=== PATIENT | male | born 1955 | race Caucasian/White ===

== ENCOUNTER → 2022-04-03 | Outpatient (CLI) | payer MEDICARE, BC ==
--- NOTE | 2022-04-03 09:58 | XR ---
EXAMINATION TYPE: XR chest 2V DATE OF EXAM: 04/03/2022 8:19 AM COMPARISON: none TECHNIQUE: XR chest 2V Frontal and lateral views of the chest. CLINICAL INDICATION:Male, 66 years old with history of [id number]; FINDINGS: Lungs/Pleura: There is no evidence of pleural effusion, focal consolidation, or pneumothorax. Pulmonary vascularity: Unremarkable. Heart/mediastinum: Cardiomediastinal silhouette is unremarkable. Musculoskeletal: No acute osseous pathology. IMPRESSION: No acute cardiopulmonary disease/process.
== END | disposition home or self-care (01) ==
LOC: RADXRMAIN 08:07
PROVIDERS: ATTEND Internal Medicine
DX: R07.89 Other chest pain (principal)
CPT/HCPCS: 71046

== ENCOUNTER → 2022-05-01 | Outpatient (CLI) | payer MEDICARE, BC ==
[~2022-05-01] MED LIST: REGADENOSON 0.4 MG/5 ML SYRINGE IV PRN
--- NOTE | 2022-05-01 12:25 | NM ---
EXAMINATION TYPE: NM stress lexiscan cardiolite DATE OF EXAM: 05/01/2022 COMPARISON: NONE HISTORY: Chest pain TECHNIQUE: After the intravenous administration of 10.2 mCi Tc 99m Sestamibi - Cardiolite resting SP ECT images acquired 45 minutes post injection. The patient received 0.4mg Lexiscan, 25.2 mCi Tc 99m Sestamibi - Stress images obtained [address] injection FINDINGS: Review of stress and rest SPECT images demonstrates sizable area of stress-induced reversible ischemi a involving the apex myocardium. There is a fixed defect involving the inferior wall suggestive of pr evious infarction. Corresponding wall motion abnormalities are noted.. Gated analysis shows normal w all motion with an estimated left ventricular ejection fraction of 41 %. Ventricular chamber is dilat ed. IMPRESSION: 1. Sizable area of stress-induced reversible ischemia involving the apex of the myocardium. Report ca lled to referring clinician 12:22 PM 05/01/2022. 2. Ejection fraction of 41%.
--- NOTE | 2022-05-01 17:09 | CA ---
Lexiscan Nuclear Stress Test Report Name: See Patel Exam Date: 05/01/2022 10:17 Exam Location: [facility] Ht (in): 70 Wt (lb): 195 BSA: 2.06 Ordering Phys: Isreal Sanchez MD Referring Phys: Daniel, Technologist: Chidi Galdamez Age: 66 Gender: M : 1955 Procedure CPT: Indications: R94 ABNORMAL EKG ICD-10 Codes: Patient History: Abnormal EKG Medications: Meds past 24 hrs: Pretest Chest Pain: STRESS TEST Lexiscan Protocol Exercise Duration (min:sec): 02:[address] Depressions (mm): Angina Score: Cedillo Score: Resting HR (bpm): 53 Peak HR (bpm): 108 Resting BP (mmHg): 158 / 92 Peak BP (mmHg): 176 / 109 MPHR: 153 Target HR: 130 % MPHR: 71 METS: 1.0 Total Dose: Peak Dose: Atropine: Double Product: 67226 BP Response: Stress Termination: Infusion Complete Stress Symptoms: Lt shoulder and upper back pain Stress Summary: ECG ANALYSIS Resting ECG: Stress ECG: CONCLUSIONS At baseline EKG showed normal sinus rhythm, normal axis, Q waves V1 and V2, nonspecific T-wave flattening in lead 3. Patient recieved IV infusion of Lexiscan 0.4mg and at peak infusion EKG showed abnormal [address] depressions in the inferior lateral leads. Patient developed chest and back pain with infusion similar to his prior discomfort. Conclusions: 1. Nonspecific EKG portion secondary baseline EKG abnormalities however worsened significant downsloping ST depressions as well as chest pain with infusion concerning for severe coronary artery disease. 2. Nuclear imaging to be reported separately. Dr. Gilbert Henao DO (Electronically Signed) Final Date: 01 May 2022 17:08
== END | disposition home or self-care (01) ==
LOC: RADNMMAIN 08:32
PROVIDERS: ATTEND Internal Medicine
DX: I25.89 Other forms of chronic ischemic heart disease (principal)
CPT/HCPCS: 93017; 78452; A9500; J2785

== ENCOUNTER → 2022-05-06 | Outpatient (CLI) | payer MEDICARE, BC | END | disposition home or self-care (01) | LOC: LABPAT 08:04 | PROVIDERS: ATTEND Internal Medicine Cardiovascular Disease | DX: Z53.9 Procedure and treatment not carried out, unspecified reason (principal) ==

== ENCOUNTER 2022-05-07 10:05 | Day surgery (SDC) | payer MEDICARE, BC ==
[2022-05-06 08:57] LABS: HCT 47.1 % (39.0-53.0); HGB 14.7 gm/dL (13.0-17.5); MCH 28.9 pg (25.0-35.0); MCHC 31.1 g/dL (31.0-37.0); MCV 92.7 fL (80.0-100.0); Mean Platelet Volume 7.7; Platelet Count 243 k/uL (150-450); RBC 5.08 m/uL (4.30-5.90); RDW 13.5 % (11.5-15.5)
[2022-05-06 09:16] LABS: Potassium 5.2 mmol/L (3.5-5.1)
[~2022-05-07 10:05] MED LIST changes: +ALPRAZolam 0.25 MG TAB PO PRN; +ALPRAZolam 0.5 MG TAB PO PRN; +ASPIRIN 325 MG TAB PO STA; +ATORVASTATIN 80 MG TAB PO STA; +NITROGLYCERIN SL TABS 0.4 MG TAB SUBLINGUAL PRN; -REGADENOSON 0.4 MG/5 ML SYRINGE IV PRN
[2022-05-07] MEDS ORDERED: SODIUM CHLORIDE 0.9% 1,000 ML IV ONE (10:26)
[2022-05-07] MEDS ORDERED: fentaNYL (PF) 50 MCG/ML 2 ML AMP IV ONE (11:41)
[2022-05-07] MEDS ORDERED: MIDAZOLAM 2 MG/2 ML VIAL IV ONE (11:41)
[2022-05-07] MEDS ORDERED: LIDOCAINE 1% INJ 10MG/ML (30 ML VIAL-PF) SQ ONE (11:43)
[2022-05-07] MEDS ORDERED: VERAPAMIL SYRINGE (5 MG/10 ML) INTRAARTER ONE (11:49)
[2022-05-07] MEDS ORDERED: HEPARIN SODIUM 1,000 UN/ML (10ML VL) IV ONE (11:55)
[2022-05-07] MEDS ORDERED: IOPAMIDOL-370 125ML BTL INJ ONE (12:16)
[2022-05-07] MEDS ORDERED: RX INFO: IV CONTRAST WAS GIVEN 1 EACH MISC MISCELLANE PRN (12:25)
[2022-05-07] MEDS: SODIUM CHLORIDE 0.9% 1,000 ML in EMPTY BAG 1 BAG IV SCH ×2 (18:13→18:16)
[2022-05-07] MEDS: SODIUM CHLORIDE 0.9% 1,000 ML IV SCH (18:15)
[2022-05-07] MEDS ORDERED: METOPROLOL SUCCINATE (ER) 25 MG TAB.ER.24H PO SCH (21:00)
[2022-05-07] MEDS ORDERED: LOSARTAN 25 MG TAB PO SCH (21:00)
[2022-05-07] MEDS ORDERED: ATORVASTATIN 40 MG TAB PO SCH (21:00)
[2022-05-07] MEDS ORDERED: ATORVASTATIN 80 MG TAB PO SCH (21:00)
--- NOTE | 2022-05-07 23:27 | CC ---
CARDIAC CATHETERIZATION REPORT INDICATIONS: Exertional chest pain with abnormal stress test showing ischemia in LAD distribution. The patient has an ejection fraction of around 40%. PROCEDURE NOTE: After obtaining informed consent, left heart catheterization, coronary angiogram was performed via the right radial artery. The patient tolerated the procedure well without any obvious immediate complications, received moderate conscious sedation. Total sedation time was 27 minute. The right radial artery access was obtained using a micropuncture needle. A 6-Belizean sheath was introduced. The patient received 5 mg of verapamil and 5000 units of intravenous heparin as per protocol and we used a Glidewire to get into the ascending aorta and used a size 6 Narciso catheter to engage the right and a Ronen catheter to engage the left coronary artery. Procedure was completed uneventfully. FINDINGS: 1. Hemodynamics: Left ventricular end-diastolic pressure is 16 mm. There is no significant gradient across the aortic valve. 2. Left ventriculogram: Left ventriculogram is not performed. 3. Angiographic data: Left main coronary artery is normal-sized vessel and is free of stenosis, divides into the circumflex coronary artery and LAD. Circumflex coronary artery branches are free of significant stenosis. LAD shows a 95% focal stenosis in the proximal portion and 90% mid LAD stenosis. There are extensive collaterals to the distal, right coronary artery is totally occluded proximally. CONCLUSION: Severe 2-vessel coronary artery disease as described above with a totally occluded right coronary artery and severe stenosis involving proximal LAD and mid LAD. I reviewed angiographic data with Dr. Henao who felt angioplasty of the LAD might be technically challenging as the lesion almost extends into the left main. We will consult a surgeon for an opinion and I will keep the patient here overnight and let him go home in the morning. MMODL / IJN: [id number] /
[2022-05-08] MEDS: SODIUM CHLORIDE 0.9% 1,000 ML IV SCH (01:57)
[2022-05-08] MEDS: SODIUM CHLORIDE 0.9% 1,000 ML in EMPTY BAG 1 BAG IV SCH (02:00)
[2022-05-08 08:26] VITALS: BP 145/81; PULSE 56; RESP 17; TEMP 98.2
[2022-05-08] MEDS ORDERED: ASPIRIN 81 MG PO SCH (09:00)
[2022-05-08] MEDS ORDERED: ISOSORBIDE MONONITRATE ER 30 MG TAB.ER.24H PO SCH (09:00)
[2022-05-08 09:02] LABS: Basophils # (A) 0.02 X 10*3/uL (0.00-0.10); Basophils % (A) 0.2 %; Eosinophils # (A) 0.06 X 10*3/uL (0.04-0.35); Eosinophils % (A) 0.7 %; HCT 41.7 % (39.6-50.0); HGB 13.6 g/dL (13.0-17.0); Immature Grans, Automated 0.2 %; Lymphocytes # (A) 2.05 X 10*3/uL (0.90-5.00); Lymphocytes % (A) 24.7 %; MCH 29.4 pg (27.0-32.0); MCHC 32.6 g/dL (32.0-37.0); MCV 90.1 fL (80.0-97.0); Mean Platelet Volume 10.3 fL (9.5-12.2); Monocytes # (A) 0.66 X 10*3/uL (0.20-1.00); NRBC Per 100 WBC 0 /100 WBCS (0.0-0.0); Neutrophils # (A) 5.49 X 10*3/uL (1.80-7.70); Neutrophils % (A) 66.2 %; Platelet Count 206 X 10*3/uL (140-440); RBC 4.63 X 10*6/uL (4.40-5.60); RDW 13.5 % (11.5-14.5)
[2022-05-08 09:28] LABS: African American GFR (CKD) 76.7 (60.0-200.0); Anion Gap 10.8 mmol/L (10.00-18.00); BUN/Creat Ratio 13.77 Ratio (12.00-20.00); Blood Urea Nitrogen 15.7 mg/dL (9.0-27.0); Calcium 9.4 mg/dL (8.7-10.3); Carbon Dioxide 23.2 mmol/L (20.0-27.5); Non-African American GFR(CKD) 66.2 (60.0-200.0); Potassium 4.2 mmol/L (3.5-5.5)
== END 2022-05-08 10:16 | disposition home or self-care (01) ==
LOC: CATHCVL 10:05 → 6NMEDSUR 12:46 → CATHCVL 05-08 10:16
PROVIDERS: ATTEND Internal Medicine Cardiovascular Disease
DX: I25.10 Atherosclerotic heart disease of native coronary artery without angina pectoris (principal); I25.82 Chronic total occlusion of coronary artery; R94.39 Abnormal result of other cardiovascular function study; E78.5 Hyperlipidemia, unspecified; E78.2 Mixed hyperlipidemia; I25.5 Ischemic cardiomyopathy; Z79.899 Other long term (current) drug therapy; Z79.82 Long term (current) use of aspirin
CPT/HCPCS: 93458; 80051; 80048; 82565; 84132; 84520; 85025; 85027; C1769 ×2; C1894; J2250; J2001; J3010; J1644; Q9967

== ENCOUNTER → 2022-06-23 | Outpatient (CLI) | payer MEDICARE, BC ==
[2022-06-23 11:32] LABS: ALT 45 U/L (10-49); AST 26 U/L (14-35); LDL Cholesterol,Calculated 143.8 mg/dL (0.0-131.0)
== END | disposition home or self-care (01) ==
LOC: LABWHC1 07:38
PROVIDERS: ATTEND Internal Medicine Cardiovascular Disease
DX: E78.2 Mixed hyperlipidemia (principal)
CPT/HCPCS: 36415; 80061; 84450; 84460

== ENCOUNTER → 2022-12-16 | Outpatient (CLI) | payer MEDICARE, BC ==
[2022-12-16 11:03] LABS: ALT 32 U/L (10-49); AST 23 U/L (14-35); Chol/HDL Ratio 2.49 Ratio; LDL Cholesterol,Calculated 70.1 mg/dL (0.0-131.0)
== END | disposition home or self-care (01) ==
LOC: LABWHC1 07:57
PROVIDERS: ATTEND Internal Medicine Cardiovascular Disease
DX: E78.2 Mixed hyperlipidemia (principal)
CPT/HCPCS: 36415; 80061; 84450; 84460

== ENCOUNTER → 2023-12-29 | Outpatient (CLI) | payer MEDICARE, BC ==
[2023-12-29 11:45] LABS: ALT 38 U/L (10-49); AST 28 U/L (14-35); LDL Cholesterol,Calculated 70.8 mg/dL (0.0-131.0)
== END | disposition home or self-care (01) ==
LOC: LABWHC1 07:44
PROVIDERS: ATTEND Internal Medicine Cardiovascular Disease
DX: E78.2 Mixed hyperlipidemia (principal)
CPT/HCPCS: 36415; 80061; 84450; 84460

== ENCOUNTER → 2025-01-12 | Outpatient (CLI) | payer MEDICARE ==
[2025-01-12 15:35] LABS: ALT 29 U/L (10-49); AST 24 U/L (14-35); Chol/HDL Ratio 3.07 Ratio; LDL Cholesterol,Calculated 74.6 mg/dL (0.0-131.0)
== END | disposition home or self-care (01) ==
LOC: LABWHC1 07:51
PROVIDERS: ATTEND Internal Medicine Cardiovascular Disease
DX: E78.2 Mixed hyperlipidemia (principal)
CPT/HCPCS: 36415; 80061; 84450; 84460